=== PATIENT | female | born 1955 | race Caucasian/White ===

== ENCOUNTER 2018-08-11 12:55 | Emergency (ER) | payer BC, MEDICAID ==
--- NOTE | 2018-08-11 13:06 | EDM.PDOC ---
ED HPI GENERAL MEDICAL PROBLEM - General Chief Complaint: Neuro Symptoms/Deficits Stated Complaint: STROKE SYMPTOMS Time Seen by Provider: 08/11/18 13:06 Source of Information: Reports: Patient, Family (spouse) History Limitations: Reports: Altered Mental Status (Patient has underlying dementia and is very confused and disoriented.) - History of Present Illness INITIAL COMMENTS - FREE TEXT/NARRATIVE: 62-year-old female brought to the ED after she apparently was sitting down to lunch with her at home today. She suddenly slumped and appeared to lose consciousness with chin on chest position will still seated. Her recognized her distress and attended to her. She came around within a 32nd to minute window. He indicated that there was no shaking episodes to indicate a seizure-like activity. 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 Her dementia is at this time is quite severe. No recent changes in medications. He reports lately her behavior is very bizarre and he appreciates a change in her behavior over the last 4 days.. He felt that she may well of suffered another small TIA or stroke. Concern today was whether or not she had suffered a major stroke to make her pass out. No real useful history can be gleaned from the patient as her dementia is quite severe. She talks in tangents and has no short- term memory whatsoever. Her provides all of the history. On initial assessment her vital signs are stable. A stroke alert wasn't called on this patient and I attended her immediately. Onset: Today Onset Date: 08/11/18 Onset Time: 12:30 Duration: Minutes:, Improving Location: Reports: Other (Patient suddenly lost consciousness and with her head slumping off to one side with chin on chest position. She came around within about 30 seconds to a minute.) Quality: Reports: Other Severity: Moderate (Syncope well seated.) Improves with: Reports: Other Context: Reports: Other (Seated at the kitchen table getting ready T dinner that her . When). Denies: Activity (Spontaneous recovery), Exercise, Lifting, Sick Contact, Trauma Associated Symptoms: Reports: Confusion, Malaise. Denies: Chest Pain (Patient is chronically confused from severe multi-infarct dementia.), Cough, cough w sputum, Diaphoresis, Fever/Chills, Headaches, Loss of Appetite, Nausea/Vomiting , Rash, Seizure, Shortness of Breath Treatments SENIOR ENVIRONMENTAL ENGINEER: Reports: Other (see below) (None. She takes aspirin twice daily) Headache Pain Score (Numeric/FACES): 2 - Related Data Allergies Allergy/AdvReac Type Severity Reaction Status Date / Time No Known Allergies Allergy Verified 08/11/18 13:07 Past Medical History Cardiovascular History: Reports: Hypertension (Mild hypertension) Neurological History: Reports: Alzheimers Disease, CVA ( CT exam in the past right-sided weakness), Other (See Below) (Question of multi-infarct dementia. She has multiple lacunar infarcts which are unknown to her on recent CT scan of the brain. Patient's mental health has been declining quite substantially over the last several months. He reports ports that she is exhibiting sundowner effect and often will pace and stay up most of the night wrecking the house carrying things apart such a. He seems to be toleratingthis type of behavior without major issue.) Social & Family History - Living Situation & Occupation Living situation: Reports: Occupation: Disabled ED ROS GENERAL - Review of Systems Review Of Systems: Unable To Obtain (Unable to obtain from the patient that she has severe dementia and speaks in tangents only.) Constitutional: Reports: Decreased Appetite (Doesn't eat real well), Weight Loss. Denies: Fever ( History obtained from the .), Chills, Malaise, Weakness, Fatigue HEENT: Reports: Glasses Respiratory: Reports: No Symptoms Cardiovascular: Reports: No Symptoms Endocrine: Reports: No Symptoms GI/Abdominal: Reports: Constipation : Reports: Incontinence (Of urine at times) Musculoskeletal: Reports: No Symptoms Skin: Reports: No Symptoms Neurological: Reports: Confusion, Other (Has no short-term memory left. Exhibiting sundowner's effect. He noticed a change in her behavior over the last 3-4 days where she has become more confused after 4 PM in the afternoon and take things apart moves things around in the house etc. He states that this is always in disarray because of her confusion and moving objects) Psychiatric: Reports: Agitation, Anxiety, Confusion, Hallucinations, Mood Lability. Denies: Homicidal Ideation Hematologic/Lymphatic: Reports: No Symptoms (Not that the is aware of.) Immunologic: Reports: No Symptoms ED EXAM, NEURO - Physical Exam Exam: See Below Exam Limited By: Altered Mental Status General Appearance: Alert (She is very confused and no useful history can be gleaned from her. She does cooperate with the examination for the most part), Anxious, Mild Distress Eye Exam: Bilateral Eye: Normal Inspection, PERRL Ears: Normal TMs (No gaze palsy evident.) Throat/Mouth: Normal Inspection, Normal Lips, Normal Teeth, Normal Oropharynx Head Exam: Atraumatic, Normocephalic Neck: Normal Inspection, Supple, Non-Tender, Full Range of Motion. No: Carotid Bruit, Lymphadenopathy (L), Lymphadenopathy (R) Respiratory/Chest: No Respiratory Distress, Lungs Clear, Normal Breath Sounds, Chest Non-Tender Cardiovascular: Normal Peripheral Pulses, Regular Rate, Rhythm, No Edema, No Gallop, No Murmur, No Rub GI/Abdominal: Normal Bowel Sounds, Soft, Non-Tender, No Organomegaly, No Abnormal Bruit, No Mass, Pelvis Stable Neurological: Alert, CN II-XII Intact (Extraocular movements were normal. Smell appears to be intact. Smile was normal. Hearing is intact. Swallowing.), Abnormal Motor (She does have decreased fondant cooker strength and biceps strength in her right arm as compared to the left. I could not find any deficit in her lower extremities appeared to be equal bilaterally. She was not able to perform abnormal finger to nose assessment or heel to mckenzie. downwards on the right side.), Babinski (Upgoing on the right side cervical on the left.). No: Normal Gait, Oriented x 3 DTR: 1+: Achilles (R), Achilles (L), 2+: Bicep (R), Patella (R), 3+: Bicep (L), Patella (L) Back Exam: Normal Inspection, Full Range of Motion Extremities: Normal Inspection, Normal Range of Motion, Non-Tender, No Pedal Edema Psychiatric: Anxious Skin Exam: Warm, Dry, Intact, Normal Color, No Rash EKG INTERPRETATION EKG Date: 08/11/18 Time: 13:17 Rhythm: NSR Rate (Beats/Min): 80 [place]: Normal P-Wave: Enlarged (Consider left atrial hypertrophy pattern) QRS: Other (There is early R-wave transition with suspect right ventricular hypertrophy versus septal hypertrophy pattern. There is left ventricular hypertrophy pattern as well.) ST-T: Other (T-wave inversion aVL nonspecific finding. Diffuse early repolarization pattern.) EKG Interpretation Comments: Abnormal ECG Course - Vital Signs Last Recorded V/S: Last Vital Signs Temp 36.7 C 08/11/18 14:10 Pulse 71 08/11/18 14:10 Resp 20 08/11/18 14:10 BP 144/98 H 08/11/18 14:10 Pulse Ox 97 08/11/18 14:10 - Orders/Labs/Meds Orders: Active Orders 24 hr Category Date Time Status EKG Documentation Completion [RC] STAT Care 08/11/18 13:05 Active Labs: Laboratory Tests 08/11/18 08/11/18 08/11/18 Range/Units 13:20 13:20 13:20 WBC 5.68 (3.98-10.04) K/mm3 RBC 4.80 (3.98-5.22) M/mm3 Hgb 14.6 (11.2-15.7) gm/L Hct 43.2 (34.1-44.9) % MCV 90.0 (79.4-94.8) fl MCH 30.4 (25.6-32.2) pg MCHC 33.8 (32.2-35.5) g/dl RDW Std Deviation 43.9 (36.4-46.3) fL Plt Count 286 (182-369) K/mm3 MPV 8.4 L (9.4-12.3) fl Neutrophils % (Manual) 74 H (40-60) % Band Neutrophils % 0 (0-10) % Lymphocytes % (Manual) 19 L (20-40) % Atypical Lymphs % 0 % Monocytes % (Manual) 7 (2-10) % Eosinophils % (Manual) 0 L (0.7-5.8) % Basophils % (Manual) 0 L (0.1-1.2) Platelet Estimate Adequate RBC Morph Comment Normal PT 10.4 (9.5-12.1) SECONDS INR 0.95 APTT (24-31) SECONDS Sodium 142 (136-145) mEq/L Potassium 3.7 (3.5-5.1) mEq/L Chloride 106 (98-107) mEq/L Carbon Dioxide 23 (21-32) mEq/L Anion Gap 16.7 H (5-15) BUN 22 H (7-18) mg/dL Creatinine 1.3 H (0.55-1.02) mg/dL Est Cr Clr Drug Dosing 39.34 mL/min Estimated GFR (MDRD) 41 (>60) mL/min BUN/Creatinine Ratio 16.9 (14-18) Glucose 111 (80-115) mg/dL Calcium 9.9 (8.5-10.1) mg/dL Magnesium 2.2 (1.8-2.4) mg/dl Total Bilirubin 0.4 (0.2-1.0) mg/dL AST 28 (15-37) U/L ALT 24 (14-59) U/L Alkaline Phosphatase 94 (46-116) U/L CK-MB (CK-2) 0.7 (0-3.6) ng/ml Troponin I < 0.017 (0.00-0.056) ng/mL C-Reactive Protein 0.6 (<1.0) mg/dL NT-Pro-B Natriuret Pep (0-125) pg/mL Total Protein 7.3 (6.4-8.2) g/dl Albumin 3.9 (3.4-5.0) g/dl Globulin 3.4 gm/dL Albumin/Globulin Ratio 1.2 (1-2) 08/11/18 08/11/18 Range/Units 13:20 13:20 WBC (3.98-10.04) K/mm3 RBC (3.98-5.22) M/mm3 Hgb (11.2-15.7) gm/L Hct (34.1-44.9) % MCV (79.4-94.8) fl MCH (25.6-32.2) pg MCHC (32.2-35.5) g/dl RDW Std Deviation (36.4-46.3) fL Plt Count (182-369) K/mm3 MPV (9.4-12.3) fl Neutrophils % (Manual) (40-60) % Band Neutrophils % (0-10) % Lymphocytes % (Manual) (20-40) % Atypical Lymphs % % Monocytes % (Manual) (2-10) % Eosinophils % (Manual) (0.7-5.8) % Basophils % (Manual) (0.1-1.2) Platelet Estimate RBC Morph Comment PT (9.5-12.1) SECONDS INR APTT 27 (24-31) SECONDS Sodium (136-145) mEq/L Potassium (3.5-5.1) mEq/L Chloride (98-107) mEq/L Carbon Dioxide (21-32) mEq/L Anion Gap (5-15) BUN (7-18) mg/dL Creatinine (0.55-1.02) mg/dL Est Cr Clr Drug Dosing mL/min Estimated GFR (MDRD) (>60) mL/min BUN/Creatinine Ratio (14-18) Glucose (80-115) mg/dL Calcium (8.5-10.1) mg/dL Magnesium (1.8-2.4) mg/dl Total Bilirubin (0.2-1.0) mg/dL AST (15-37) U/L ALT (14-59) U/L Alkaline Phosphatase (46-116) U/L CK-MB (CK-2) (0-3.6) ng/ml Troponin I (0.00-0.056) ng/mL C-Reactive Protein (<1.0) mg/dL NT-Pro-B Natriuret Pep 211 H (0-125) pg/mL Total Protein (6.4-8.2) g/dl Albumin (3.4-5.0) g/dl Globulin gm/dL Albumin/Globulin Ratio (1-2) Meds: Medications Discontinued Medications Generic Name Dose Route Start Last Admin Trade Name Freq PRN Reason Stop Dose Admin Aspirin 324 mg 08/11/18 14:27 08/11/18 14:31 Aspirin PO 08/11/18 14:28 324 mg ONETIME ONE Administration - Radiology Interpretation Free Text/Narrative:: 62-year-old female brought to the ED by her after she suddenly lost consciousness while seated at the dinner table around 12:30 today. Her chin went to her chest and she seemed to be unresponsive for 30 seconds to a minute. He did not appreciate any seizure-like activity. With verbal stimulation and physical stimulation she came around and she was able to speak per her norm. Of note the patient has multi-infarct dementia and is severely impaired with no short-term memory. Therefore was very difficult ascertain that she suffered a stroke. She's had previous strokes and she did exhibit right arm weakness. There was no facial weakness or cranial nerve abnormalities that I could identify. She could walk with assist and seemed to be only minimally ataxic and I could not identify any weakness in her right leg. The question came down to whether or not they would proceed with thrombolytics at any rate. Was no way to define any definitive timeframe for possible stroke. Because of the stroke alert a CT of her head was performed. Remains unchanged from previous CT does show multiple lacunar infarcts in both basal ganglia with no new lesions or certainly no evidence of intracranial bleed. Plan will be to monitor her heart rate for any arrhythmias blood pressure changes and routine labs to be done. - Re-Assessments/Exams Free Text/Narrative Re-Assessment/Exam: 08/11/18 13:20: CT scan of the brain reveals prominent ventricles along the basal cisterns and sulci to be quite prominent. Diminished density is noted within the periventricular and subcortical white matter bilaterally. Several old lacunar infarcts are seen within the basal ganglia. No other abnormal parenchymal densities are identified. No evidence of intracranial hemorrhage no midline shift or mass effect is seen. Appreciate on noncontrast CT of the head today. 08/11/18 14:28 Lab reveals normal white count at 5.68 with 74% neutrophils and no bands reported. Hemoglobin is 14.6 with hematocrit of 43.2. Platelets count is normal 286,000. PT is 10.4 with an INR of 0.95. PTT is 27. Sodium is 142 with potassium of 3.7. Cortisol 6 bicarbonate 23. And a gap is elevated at 16.7. B1 is 22. Creatinine is 1.3. Glucose is 111 with a calcium of 9.9. Magnesium is 2.2. Liver function is normal. Cardiac markers show CK-MB is 0.7. Troponin I is less than 0.017. C-reactive protein is 0.6 BNP is 211 minimally elevated. 08/11/18 15:15: Patient has not shown any signs of arrhythmia on continuous monitoring . I had a discussion with the about her pernicious anemia need for B12. He states her levels are up and down and really depends on what time the levels are checked after recent injections. I explained to him that there would be action of B12 in her body that would last her close to a year when she's had greater than 6 months of injections. Currently once a month injection of the thousand micrograms would suffice to prevent any further B12 deficiency. Patient remains alert and very active with her right arm. She is able to grab the glass of water and drink without any issues. Therefore I don't believe she suffered a stroke. I think she may have suffered autonomic nervous system dysfunction related to dementia causing her to suddenly pass out. On further questioning the does identify she seems to zone outer space out intermittently like petit mal type seizure activity. Due to her severe organic brain disease. Patient reassured in this regard at this time no changes in treatment plan were made. . Departure - Departure Time of Disposition: 15:21 Disposition: Home, Self-Care 01 Condition: Fair Clinical Impression: Atypical syncope - Discharge Information *PRESCRIPTION DRUG MONITORING PROGRAM REVIEWED*: Not Applicable *COPY OF PRESCRIPTION DRUG MONITORING REPORT IN PATIENT NAM: Not Applicable Instructions: Syncope, [id number] Referrals: PCP,None [Primary Care Provider] - Forms: ED Department Discharge Additional Instructions: Evaluation the emergency room today in regards to syncopal event that occurred while seated at the dinner table today. Sudden onset of droop and collapse and then increased slurred speech and seemingly increased weakness in her right upper extremity. A history of numerous TIAs and lacunar infarcts on CT scan. Concern was for possible large stroke recurrence. Impossible to tell by examination due to previous deficits. CT of the brain did not show anything new and certainly no sign of any intracranial bleeding. Lab work also proved to be completely normal and heart monitoring while she was in the ED did not show any abnormalities of heart rhythm that would cause this recurrence. We'll that she had a recurrent TIA/small stroke that caused today's symptoms although symptoms did not seem to last very long. I have is more suspicion that she had autonomic nervous system dysfunction related to her dementia which means that she's had sudden drop in her blood pressure that she would not be able to control. This could cause a sudden drop in blood pressure to the brain caused her symptom development today. Only time will tell if this continues to happen. Would mean that she usually would have a prolonged severe deficit where left arm or left leg would not work at all. Concern would be for seizure development due to previous lacunar infarcts to the brain. But this usually would cause some twitching or jerking of the musculature or certainly generalized stiffening and then inability to talk or move anything for 10-20 minutes. With personal physician if any further problems occur. - My Orders Last 24 Hours: My Active Orders 08/11/18 13:05 EKG Documentation Completion [RC] STAT - Assessment/Plan Last 24 Hours: My Active Orders 08/11/18 13:05 EKG Documentation Completion [RC] STAT
--- NOTE | 2018-08-11 13:21 | CT ---
Head CT Technique: Multiple axial sections through the brain were obtained. Intravenous contrast was not utilized. Comparison: Prior head CT study of 03/05/15. Findings: Ventricles along with basal cisterns and sulci over the convexities are mildly prominent. Diminished density is noted within the periventricular and subcortical white matter. Several old lacunar infarcts are seen within the basal ganglia. No other abnormal parenchymal densities are seen. No evidence of intracranial hemorrhage. No midline shift or mass effect is seen. Bone window settings were reviewed which shows the visualized sinuses to appear clear. No acute calvarial abnormality is seen. Impression: 1. Mild senescent change as noted above. Nothing acute is appreciated on noncontrast head CT study. Diagnostic code #2
[2018-08-11] MEDS ORDERED: Aspirin 81 MG Tab.Chew PO ONE (14:27)
--- NOTE | 2018-08-11 14:37 | CR ---
Chest: Portable view of the chest was obtained. Comparison: No prior chest x-ray. Heart size and mediastinum are normal. Small nodule is noted within the right midlung most likely due to granuloma. Lungs otherwise are clear. Scoliosis is noted within the spine. Impression: 1. Nothing acute is seen on portable chest x-ray. Diagnostic code #2
[2018-08-11 15:16] VITALS: BP 144/98
== END 2018-08-11 15:34 | disposition home or self-care (01) ==
LOC: JD.ED 12:55
DX: R55 Syncope and collapse (principal); I10 Essential (primary) hypertension
CPT/HCPCS: 36415; 70450; 71045; 80053; 82553; 83735; 83880; 84484; 85007; 85027; 85610; 85730; 86140; 93005; 99285; A9270; 93010; 99284-25